=== PATIENT | female | born 1975 | race Caucasian/White ===

== ENCOUNTER 2018-01-13 12:25 | Emergency (ER) | payer SELFPAY ==
[2018-01-13 12:45] VITALS: BP 138/104
[2018-01-13] MEDS ORDERED: Aspirin 81 MG Tab.Chew PO ONE (12:45)
[2018-01-13] MEDS ORDERED: Ketorolac 30 MG/ML SDV IVPUSH ONE (14:00)
--- NOTE | 2018-01-13 14:00 | CR ---
Chest 1V Frontal HISTORY: No Clinical Info FINDINGS: Heart size within normal limits. Pulmonary vasculature within normal limits. No evidence fo r focal consolidation or cardiopulmonary process. IMPRESSION: No radiographic evidence for acute cardiopulmonary process.
--- NOTE | 2018-01-13 14:24 | EDM.PDOC ---
ED HPI GENERAL MEDICAL PROBLEM - General Chief Complaint: Chest Pain Stated Complaint: CHEST PAIN Time Seen by Provider: 01/13/18 12:45 Source of Information: Reports: Patient History Limitations: Reports: No Limitations - History of Present Illness INITIAL COMMENTS - FREE TEXT/NARRATIVE: PT FELL OUT OF THE BOAT YESTERDAY BUT DID NOT HIT ANYTHING. sHE HAS PAIN IN HER LEFT CHEST. iT HURTS ALOT WHEN SHE TAKES A DEEP BREATH. Onset: Today, Gradual, Other (HURTS ALOT TO TAKE A DEEP BREATH. ) Duration: Hour(s): Location: Reports: Chest Associated Symptoms: Reports: Chest Pain, Shortness of Breath Chest Pain Score (Numeric/FACES): 6 - Related Data Allergies Allergy/AdvReac Type Severity Reaction Status Date / Time No Known Allergies Allergy Unverified 12/21/14 09:01 Home Meds: Home Meds NK [No Known Home Meds] 12/21/14 [History] Past Medical History EDUCATION SPEC History: Reports: Social & Family History - Tobacco Use Smoking Status *Q: Never Smoker - Caffeine Use Caffeine Use: Reports: Coffee - Recreational Drug Use Recreational Drug Use: No ED ROS GENERAL - Review of Systems Review Of Systems: See Below Constitutional: Reports: No Symptoms HEENT: Reports: No Symptoms Respiratory: Reports: Pleuritic Chest Pain, Other (HURTS ALOT MORE WITH DEEP BREATHING) Cardiovascular: Reports: Chest Pain Endocrine: Reports: No Symptoms GI/Abdominal: Reports: No Symptoms : Reports: No Symptoms Musculoskeletal: Reports: Other (HURTS WHEN SHE PALPATES HER LEFT CHEST. ) Skin: Reports: No Symptoms ED EXAM, GENERAL - Physical Exam Exam: See Below Free Text/Narrative:: pT ARRIVED WITH PAIN IN LEFT CHEST AND PAIN WITH DEEP BREATHING. Exam Limited By: No Limitations General Appearance: Alert, Anxious, Moderate Distress Ears: Normal TMs Nose: Normal Inspection Throat/Mouth: Normal Inspection Head: Atraumatic Neck: Normal Inspection Respiratory/Chest: No Respiratory Distress Cardiovascular: Regular Rate, Rhythm, Other (PT IS TENDER IN THE LEFT CHEST WHEN SHE TAKES A DEEP BREATH. ) GI/Abdominal: Soft, Non-Tender (Female) Exam: Deferred Rectal (Female) Exam: Deferred Back Exam: Normal Inspection Extremities: Normal Inspection, Other (NO LEG TENDERNESS) Neurological: Alert, Oriented, Normal Cognition Course - Vital Signs Last Recorded V/S: Last Vital Signs Temp 36.8 C 05/29/18 12:43 Pulse 64 01/13/18 12:43 Resp 16 01/13/18 12:43 BP 138/104 H 01/13/18 12:43 Pulse Ox 97 01/13/18 12:43 - Orders/Labs/Meds Orders: Active Orders 24 hr Category Date Time Status EKG Documentation Completion [RC] ASDIRECTED Care 01/13/18 12:44 Active UA W/MICROSCOPIC [URIN] Urgent Lab 01/13/18 12:43 Ordered EKG 12 Lead [EK] Routine Ther 01/13/18 12:44 Ordered Labs: Laboratory Tests 01/13/18 01/13/18 01/13/18 Range/Units 12:50 12:50 12:50 WBC 11.4 H (4.5-11.0) K/uL RBC 4.11 (3.30-5.50) M/uL Hgb 12.3 (12.0-15.0) g/dL Hct 38.0 (36.0-48.0) % MCV 93 (80-98) fL MCH 30 (27-31) pg MCHC 32 (32-36) % Plt Count 290 (150-400) K/uL Neut % (Auto) 76 H (36-66) % Lymph % (Auto) 15 L (24-44) % [place] % (Auto) 7 H (2-6) % Eos % (Auto) 2 (2-4) % Baso % (Auto) 0 (0-1) % Sodium 139 L (140-148) mmol/L Potassium 4.1 (3.6-5.2) mmol/L Chloride 101 (100-108) mmol/L Carbon Dioxide 27 (21-32) mmol/L Anion Gap 15.1 H (5.0-14.0) mmol/L BUN 9 (7-18) mg/dL Creatinine 0.9 (0.6-1.0) mg/dL Est Cr Clr Drug Dosing 73.27 mL/min Estimated GFR (MDRD) > 60 (>60) Glucose 109 H (74-106) mg/dL Calcium 8.4 L (8.5-10.1) mg/dL Total Bilirubin 0.3 (0.2-1.0) mg/dL AST 21 (15-37) U/L ALT 25 (12-78) U/L Alkaline Phosphatase 53 (46-116) U/L Creatine Kinase 121 (26-192) U/L Troponin I < 0.017 (0.000-0.056) ng/mL Total Protein 7.3 (6.4-8.2) g/dL Albumin 3.6 (3.4-5.0) g/dL Globulin 3.7 H (2.3-3.5) g/dL Albumin/Globulin Ratio 1.0 L (1.2-2.2) Meds: Medications Discontinued Medications Generic Name Dose Route Start Last Admin Trade Name Freq PRN Reason Stop Dose Admin Aspirin 324 mg 01/13/18 12:45 01/13/18 12:48 Aspirin PO 01/13/18 12:46 324 mg ONETIME ONE Administration Ketorolac Tromethamine 30 mg 01/13/18 14:00 01/13/18 14:29 Toradol IVPUSH 01/13/18 14:01 30 mg ONETIME ONE Administration - Re-Assessments/Exams Free Text/Narrative Re-Assessment/Exam: 01/13/18 14:35 PT HAD A NORMAL TROP, NORMAL LABS OTHERWISE. hR EKG WAS NORMAL AND HER CHEST XRAY LOOKED GOOD. Departure - Departure Time of Disposition: 14:36 Disposition: Home, Self-Care 01 Condition: Fair Clinical Impression: Chest wall pain Referrals: PCP,None [Primary Care Provider] - Forms: ED Department Discharge Care Plan Goals: ICE OR HEAT TO LEFT CHEST, MOTRIN 600MG TID, NORCO 5/325 Q6H PRN FOR THE PAIN, ENCOURRAGE DEEP BREATHING. - My Orders Last 24 Hours: My Active Orders 01/13/18 12:43 UA W/MICROSCOPIC [URIN] Urgent 01/13/18 12:44 EKG Documentation Completion [RC] ASDIRECTED EKG 12 Lead [EK] Routine - Assessment/Plan Last 24 Hours: My Active Orders 01/13/18 12:43 UA W/MICROSCOPIC [URIN] Urgent 01/13/18 12:44 EKG Documentation Completion [RC] ASDIRECTED EKG 12 Lead [EK] Routine
== END 2018-01-13 14:49 | disposition home or self-care (01) ==
LOC: JP.ED 12:25
DX: R07.89 Other chest pain (principal)
CPT/HCPCS: 36415; 71045; 80053; 82550; 84484; 85025; 93005; 96374; 99285; A9270; J1885

== ENCOUNTER 2022-01-25 21:20 | Emergency (ER) | payer MEDICAID ==
[2022-01-25 22:28] LABS: CORONAVIRUS COVID-19 NAA NEGATIVE (NEGATIVE)
[2022-01-25] MEDS ORDERED: Ondansetron 4 MG Tab.DIS PO ONE (22:33)
[2022-01-25] MEDS ORDERED: HYDROmorphone 1 MG/ML Syringe IM ONE (22:36)
[2022-01-25 22:43] LABS: ESTIMATED GFR > 60 (>60)
[2022-01-25 22:48] VITALS: BP 118/61; PULSE 69
== END 2022-01-25 23:49 | disposition home or self-care (01) ==
LOC: JP.ED 21:20
DX: A69.20 Lyme disease, unspecified (principal); Z87.891 Personal history of nicotine dependence; Z20.822 Contact with and (suspected) exposure to COVID-19
CPT/HCPCS: 0241U; 36415; 71046; 80053; 85025; 86617; 86618; 86666; 86753; 96372; 99283; J1170; Q0162

== ENCOUNTER 2023-08-08 16:59 | Emergency (ER) | payer MEDICAID ==
[2023-08-08] MEDS ORDERED: Codeine/guaiFENesin 10-100 MG/5 ML Syrup 5 ML Cup PO ONE (17:36)
[2023-08-08] MEDS ORDERED: methylPREDNISolone Sodium Succinate 40 MG/1 ML SDV IVPUSH ONE (17:36)
[2023-08-08] MEDS ORDERED: Albuterol/Ipratropium 3.0-0.5 MG/3 ML Neb Soln NEB ONE (17:36)
[2023-08-08] MEDS ORDERED: Lactated Ringers 1,000 ML IV SCH (17:45)
[2023-08-08] MEDS ORDERED: Levofloxacin/Dextrose 5%-Water 750 MG in Premix Bag 1 BAG IV SCH (17:45)
[2023-08-08 17:52] LABS: BASOPHILS ABSOLUTE AUTO 0.25 K/uL (0.00-0.10); BASOPHILS PERCENT AUTO 1.6 % (0.1-1.3); EOSINOPHILS ABSOLUTE AUTO 4.46 K/uL (0.00-0.40); EOSINOPHILS PERCENT AUTO 28.3 % (0.0-5.4); HEMATOCRIT 38.3 % (34.3-46.0); HEMOGLOBIN 12.3 g/dL (11.2-15.5); IMMATURE GRAN ABSOLUTE AUTO 0.03 K/uL (0.00-0.23); IMMATURE GRAN PERCENT AUTO 0.2 % (0.0-0.7); LYMPHOCYTES ABSOLUTE AUTO 3.06 K/uL (0.8-3.3); LYMPHOCYTES PERCENT AUTO 19.4 % (11.4-47.7); MEAN CORPUSCULAR HEMOGLOBIN 29.2 pg (31.6-35.5); MEAN CORPUSCULAR HGB CONC 32.1 g/dL (31.6-35.5); MONOCYTES ABSOLUTE AUTO 0.98 K/uL (0.20-0.90); MONOCYTES PERCENT AUTO 6.2 % (3.3-12.6); NEUTROPHILS PERCENT AUTO 44.3 % (40.0-78.1); PLATELET COUNT,PLT 391 K/uL (130-375); RED BLOOD CELL COUNT 4.21 M/uL (3.77-5.24); WHITE BLOOD CELL COUNT,WBC 15.8 K/uL (3.2-11.0)
[2023-08-08 18:00] LABS: CORONAVIRUS COVID-19 NAA NEGATIVE (NEGATIVE); INFLUENZA A NAA NEGATIVE (NEGATIVE); INFLUENZA B NAA NEGATIVE (NEGATIVE); RESPIRATORY SYNCYTIAL VIR NAA NEGATIVE (NEGATIVE)
[2023-08-08 18:12] LABS: ALANINE AMINOTRANSFERASE,ALT 37 U/L (12-78); ALBUMIN 3.9 g/dL (3.4-5.0); ALKALINE PHOSPHATASE 73 U/L (46-116); ASPARTATE AMNIOTRANSFERASE,AST 31 U/L (15-37); BILIRUBIN TOTAL 0.2 mg/dL (0.2-1.0); BLOOD UREA NITROGEN,BUN 10 mg/dL (7-18); CALCIUM 8.4 mg/dL (8.5-10.1); CARBON DIOXIDE,CO2 29 mmol/L (21-32); CHLORIDE,CL 101 mmol/L (100-108); CREATININE 0.8 mg/dL (0.6-1.0); EST CRCL DRUG DOSING (CG) 75.82 mL/min; ESTIMATED GFR 91 mL/min (>60); GLUCOSE RANDOM 93 mg/dL (74-106); POTASSIUM,K 4.2 mmol/L (3.6-5.2); PROTEIN TOTAL,TP 7.9 g/dL (6.4-8.2); SODIUM,NA 139 mmol/L (140-148)
[2023-08-08 18:16] LABS: ANION GAP 13.2 mmol/L (5.0-14.0); C-REACTIVE PROTEIN < 0.50 mg/dL (<0.50); LACTIC ACID 2.3 mmol/L (0.4-2.0)
[2023-08-08 19:35] VITALS: BP 121/67; PULSE 87
== END 2023-08-08 20:16 | disposition home or self-care (01) ==
LOC: JP.ED 16:59
DX: J18.9 Pneumonia, unspecified organism (principal); J45.909 Unspecified asthma, uncomplicated; Z20.822 Contact with and (suspected) exposure to COVID-19
CPT/HCPCS: 0241U; 36415; 71045; 80053; 83605; 84145; 85025; 86140; 87040; 96365; 96375; 99283; 99285; A9270; J1956; J2920; J7120; J7620